=== PATIENT | female | born 1995 | race Caucasian/White ===

== ENCOUNTER 2016-04-26 01:32 | Emergency (ER) | payer SELFPAY ==
[~2016-04-26] VITALS: Ht 162.6 cm; Wt 74.5 kg
[2016-04-26 01:35] VITALS: BP 123/94; TEMP 98.2
[2016-04-26] MEDS ORDERED: ZOLOFT 50MG50 MG PO (01:39)
[2016-04-26 03:10] VITALS: PULSE 89
== END 2016-04-26 03:10 | disposition home or self-care (01) ==
LOC: COL.ER 01:32
DX: K22.8 Other specified diseases of esophagus (principal)